=== PATIENT | female | born 1970 | race Caucasian/White ===

== ENCOUNTER 2017-02-17 14:57 | Observation (INO) | payer OTHER ==
[~2017-02-17] VITALS: Ht 165.1 cm; Wt 83.0 kg
[2017-02-17 15:11] VITALS: BP 247/138
--- NOTE | 2017-02-17 15:53 | NUR ---
PT PRESENTS TO THE ER FROM OPTHOMOLOGIST OFFICE, SENT FOR HIGH BP. MARCIAL PUPILS WERE DILATED IN EYE DOCTOR OFFICE. REPORTS BLURRY VISION TO LEFT EYE AND MILD PAIN. RT EYE ALSO DILATED WITHOUT PAIN. ALSO REPORTS MILD GRADUAL ONSET HEADACHE THATS TSRTED YESTERDAY. Addendum: 02/17/17 at 1556 by [facility] HEADACHE STARTED YESTERDAY. DENIES ANY NAUSEA/VOMITTING, FEVERS OR CHILLS. RESP EVEN AND UNLABORED, ON RA@99%. NO FACIAL DROOP NOTED, TALKING IN FULL CLEAR SENTENCES, STEADY GAIT. NO UNILATERAL WEAKNESS. IV SL#20 TO RT AC, BLOOD COLLECTED. AWAITING ER MD EXAM.
[2017-02-17] MEDS ORDERED: LORazepam 2 MG/ML VIAL IVP ONE (16:10)
[2017-02-17] MEDS ORDERED: NACL 0.9% 500 ML IV ONE (16:10)
[2017-02-17] MEDS ORDERED: ONDANSETRON 4 MG/2 ML VIAL IVP ONE (16:10)
[2017-02-17] MEDS ORDERED: LABETALOL 100 MG/20 ML VIAL IVP ONE ×2 (16:10→18:05)
[2017-02-17 16:18] LABS: BASOPHILS # (AUTO) 0.1 K/uL (0.00-0.22); BASOPHILS % (AUTO) 0.9 % (0.0-2.0); EOSINOPHILS # (AUTO) 0.2 K/uL (0-0.4); EOSINOPHILS % (AUTO) 3.3 % (0.0-4.0); HEMATOCRIT 48.5 % (36-48); HEMOGLOBIN 15.6 g/dL (12.0-16.0); LYMPHOCYTES % (AUTO) 26.5 % (20.5-51.1); MEAN CORPUSCULAR HEMOGLOBIN 28 pg (27-31); MEAN CORPUSCULAR HGB CONC 32 g/dL (33-37); MEAN CORPUSCULAR VOLUME 87 fL (80-94); MONOCYTES # (AUTO) 0.4 K/uL (0.8-1.0); NEUTROPHILS # (AUTO) 4.8 K/uL (1.8-7.7); NEUTROPHILS % (AUTO) 63.3 % (42.2-75.2); PLATELET COUNT (AUTO) 254 K/uL (140-450); RED CELL DISTRIBUTION WIDTH 12.9 % (11.6-13.7); WHITE BLOOD COUNT (AUTO) 7.5 K/uL (4.8-10.8)
[2017-02-17 16:40] LABS: ANION GAP 11.3 (8-16); CALCIUM 9.1 mg/dL (8.5-10.1); CARBON DIOXIDE 31.4 mmol/L (21-32); CREATININE 1.1 mg/dL (0.6-1.3); POTASSIUM 3.7 mmol/L (3.5-5.1)
[2017-02-17 16:46] LABS: ALBUMIN 3.1 g/dL (3.4-5.0); TOTAL BILIRUBIN 0.4 mg/dL (0.0-1.0)
--- NOTE | 2017-02-17 17:05 | NUR ---
PT TAKEN TO CT SCAN VIA [facility]
--- NOTE | 2017-02-17 17:45 | NUR ---
PT TO CT SCAN Via [facility]
--- NOTE | 2017-02-17 18:25 | NUR ---
PT LAYING IN BED, WITH EYES CLOSED, IN NAD. RESP EVEN AND UNLABORED. FAMILY AT BEDSIDE. IV FLUIDS INFUSING WELL. BP HIGH AT 198/96. ER INFORMED-ORDESR RECEIVED AND CARRIED OUT.
[2017-02-17] MEDS ORDERED: HYDROcodone/APAP 5/325 MG 1 TAB TAB PO PRN (20:50)
[2017-02-17] MEDS ORDERED: LORazepam 2 MG/ML VIAL IVP PRN (20:50)
[2017-02-17] MEDS ORDERED: DEXTROSE 50% 50 ML SYR IVP PRN (20:50)
[2017-02-17] MEDS ORDERED: ONDANSETRON 4 MG/2 ML VIAL IVP PRN (20:50)
[2017-02-17] MEDS ORDERED: ALBUTEROL 0.083% 2.5 MG/3 ML NEBU IH PRN (20:50)
[2017-02-17] MEDS ORDERED: ACETAMINOPHEN 325 MG TAB PO PRN (20:50)
[2017-02-17] MEDS ORDERED: METOPROLOL 25 MG TAB PO ONE (21:00)
[2017-02-17] MEDS ORDERED: amLODIPine 5 MG TAB PO ONE (21:00)
[2017-02-17] MEDS ORDERED: cloNIDine 0.1 MG TAB PO ONE ×2 (21:00)
[2017-02-17] MEDS ORDERED: METOPROLOL 50 MG TAB PO ONE (21:00)
[2017-02-17] MEDS: INSULIN LISPRO SLIDING SCALE 100 UNITS/ML VIAL SUBQ PRN (22:00)
--- NOTE | 2017-02-17 22:20 | NUR ---
Patient will be admitted to care of DR LARSON. Admited to TELE. Will go to room 112B. Belongings list completed. Report to ALEX CASTANON..
[2017-02-17 22:30] VITALS: BP 166/99
--- NOTE | 2017-02-17 22:30 | NUR ---
RECEIVED REPORT FROM ED RN FOR CONTINUITY OF CARE. 46 Y.O. FEMALE BROUGHT TO UNIT WITH DX: HYPERTENSIVE URGENCY. PATIENT IS A&OX4, DISCUSSED PLAN OF CARE WITH PATIENT AND FAMILY MEMBERS AT BEDSIDE, VERBALIZED UNDERSTANDING. SHIFT ASSESSMENT DONE, VS TAKEN. NO S/S OF RESPIRATORY DISTRESS NOTED ON ROOM AIR. PATIENT DENIES PAIN. MRSA SWAB COLLECTED, WRISTBANDS APPLIED. SAFETY MEASURES ENFORCED AND ORIENTED TO ROOM. CALL LIGHT PLACED WITHIN REACH AND PATIENT ENCOURAGED TO USE FOR ASSISTANCE. WILL CONTINUE TO MONITOR.
[2017-02-17] MEDS: BLOOD GLUCOSE MONITORING 1 DEV DEV FS SCH (22:43)
[2017-02-18] VITALS: BP 162/86
--- NOTE | 2017-02-18 00:09 | NUR ---
VS TAKEN, STABLE AT THIS TIME. PATIENT RESTING IN BED, NO S/S OF DISTRESS OR DISCOMFORT NOTED. CALL LIGHT WITHIN REACH.
--- NOTE | 2017-02-18 02:15 | NUR ---
PATIENT SLEEPING AT THIS TIME, NO S/S OF DISTRESS OR DISCOMFORT NOTED. SAFETY MEASURES ENFORCED, CALL LIGHT WITHIN REACH.
[2017-02-18 04:00] VITALS: BP 153/93
--- NOTE | 2017-02-18 04:22 | NUR ---
VITAL SIGNS TAKEN, STABLE AT THIS TIME, B/P AT 153/93. PATIENT AMBULATED TO RESTROOM, VOIDED. CALL LIGHT WITHIN REACH.
[2017-02-18] MEDS ORDERED: PNEUMOCOCCAL VACCINE 23 MCG/0.5 ML VIAL IMVAC PRN (04:40)
[2017-02-18] MEDS ORDERED: [UNRECOGNIZED DRUG - CODE] OP (05:01)
[2017-02-18] MEDS ORDERED: DIA250 PO (05:01)
[2017-02-18] MEDS ORDERED: [UNRECOGNIZED DRUG - CODE] OP (05:01)
[2017-02-18] MEDS ORDERED: ATRO10DR OP (05:01)
[2017-02-18] MEDS ORDERED: XALOS OP (05:01)
[2017-02-18] MEDS: BLOOD GLUCOSE MONITORING 1 DEV DEV FS SCH (05:51)
--- NOTE | 2017-02-18 06:13 | NUR ---
BLOOD SUGAR TAKEN, 236 WILL ADMINISTER INSULIN PER MD ORDER.
[2017-02-18] MEDS: INSULIN LISPRO SLIDING SCALE 100 UNITS/ML VIAL SUBQ PRN (06:23)
[2017-02-18 06:39] LABS: BASOPHILS # (AUTO) 0.1 K/uL (0.00-0.22); EOSINOPHILS # (AUTO) 0.2 K/uL (0-0.4); EOSINOPHILS % (AUTO) 3.2 % (0.0-4.0); HEMATOCRIT 37.1 % (36-48); HEMOGLOBIN 11.8 g/dL (12.0-16.0); MEAN CORPUSCULAR HEMOGLOBIN 28 pg (27-31); MEAN CORPUSCULAR HGB CONC 32 g/dL (33-37); MEAN CORPUSCULAR VOLUME 86 fL (80-94); MONOCYTES # (AUTO) 0.6 K/uL (0.8-1.0); MONOCYTES % (AUTO) 8.5 % (1.7-9.3); NEUTROPHILS # (AUTO) 3.7 K/uL (1.8-7.7); NEUTROPHILS % (AUTO) 56.3 % (42.2-75.2); PLATELET COUNT (AUTO) 181 K/uL (140-450); RED CELL DISTRIBUTION WIDTH 12.7 % (11.6-13.7); WHITE BLOOD COUNT (AUTO) 6.6 K/uL (4.8-10.8)
[2017-02-18 06:54] LABS: CALCIUM 8.2 mg/dL (8.5-10.1); CARBON DIOXIDE 26.8 mmol/L (21-32); CREATININE 1.1 mg/dL (0.6-1.3); POTASSIUM 3.8 mmol/L (3.5-5.1)
--- NOTE | 2017-02-18 07:27 | NUR ---
ENDORSED PATIENT TO DAY RN FOR CONTINUITY OF CARE, PATIENT IS IN STABLE CONDITION.
--- NOTE | 2017-02-18 07:30 | NUR ---
RECEIVED REPORT FROM LG JOHNSON. PT IS RESTING IN BED, A/OX4, AMBULATORY, SKIN IS INTACT, IV ON THE RT AC, PATENT, INTACT, FLUSHING WELL ON SALINE LOCK, NO S/S OF RESPIRATORY DISTRESS OR DISCOMFORT NOTED, SAFETY/FALL PRECAUTIONS ARE IN PLACE, DISCUSSED PLAN OF CARE WITH PT, PT VERBALIZED UNDERSTANDING, CALL LIGHT WITHIN REACH, WILL CONTINUE TO MONITOR.
[2017-02-18 08:00] VITALS: BP 151/86
[2017-02-18] MEDS ORDERED: ENOXAPARIN 40 MG/0.4 ML SYR SUBQ SCH (09:00)
[2017-02-18] MEDS ORDERED: ASPIRIN 325 MG TAB PO SCH (09:00)
[2017-02-18] MEDS ORDERED: amLODIPine 5 MG TAB PO ONE (09:00)
--- NOTE | 2017-02-18 09:15 | NUR ---
PATIENT HAS BEEN SCREENED AND CATEGORIZED MODERATE NUTRITION RISK. PATIENT WILL BE SEEN WITHIN 3-5 DAYS OF ADMISSION. 02/20/17-02/22/[address]
--- NOTE | 2017-02-18 09:30 | NUR ---
PT IS RESTING IN BED, NO S/S OF RESPIRATORY DISTRESS OR DISCOMFORT NOTED, CALL LIGHT WITHIN REACH, WILL CONTINUE TO MONITOR.
[2017-02-18] MEDS ORDERED: LISI10TA11 PO (09:49)
[2017-02-18] MEDS ORDERED: METF500T64 PO (09:49)
--- NOTE | 2017-02-18 11:30 | NUR ---
PT DISCHARGE INSTRUCTIONS GIVEN, ID WRIST BAND REMOVED, IV REMOVED, CATHETER TIP INTACT, PT STABLE UPON DISCHARGE, ACCOMPANIED BY FAMILY.
== END 2017-02-18 11:30 | disposition home or self-care (01) ==
LOC: MED 14:57 → MTU 20:57 → INTOOBSV 20:57
PROVIDERS: ADMIT Internal Medicine Pulmonary Disease; ATTEND Internal Medicine Pulmonary Disease
DX: I16.0 Hypertensive urgency (principal); E11.65 Type 2 diabetes mellitus with hyperglycemia; I10 Essential (primary) hypertension; H40.9 Unspecified glaucoma; F17.200 Nicotine dependence, unspecified, uncomplicated; Z91.14 Patient's other noncompliance with medication regimen; Z23 Encounter for immunization
CPT/HCPCS: 36415; 70450; 80048; 80053; 82550; 82553; 82948; 83735; 84484; 85025; 87081; 90732; 94760; 96361; 96372; 96374; 96375; 96376; 99285; G0378; J1650; J1815; J2060; J2405; J3490

== ENCOUNTER 2017-02-20 16:45 | Emergency (ER) | payer OTHER ==
[~2017-02-20] VITALS: Ht 165.1 cm; Wt 85.3 kg
[~2017-02-20 16:45] MED LIST: ATRO10DR OP; DIA250 PO; LISI10TA11 PO; METF500T64 PO; XALOS OP; [UNRECOGNIZED DRUG - CODE] OP; [UNRECOGNIZED DRUG - CODE] OP
[2017-02-20 16:48] VITALS: BP 237/112
[2017-02-20] MEDS ORDERED: DORZ10SO23 OP (16:57)
[2017-02-20] MEDS ORDERED: ENALAPRILAT 2.5 MG/2 ML VIAL IVP ONE ×2 (17:05→17:10)
--- NOTE | 2017-02-20 17:49 | NUR ---
PATIENT PRESENTS TO ED WITH WENT TO PMD DR. HAWKINS FOR FOLLOW UP VISIT AND BP IN OFFICE WAS 230/120 HX HTN, DM, PT STATES ITS MY REGULAR CHECK UP, DENIES N/V/D; SKIN IS PINK/WARM/DRY; AAOX4 WITH EVEN AND STEADY GAIT; LUNGS CLEAR BL; HR EVEN AND REGULAR; PT DENIES ANY FEVER, CP, SOB, OR COUGH AT THIS TIME; PATIENT STATES PAIN OF 0/10 AT THIS TIME; PATIENT POSITIONED FOR COMFORT; HOB ELEVATED; BEDRAILS UP X2; PT AAO
[2017-02-20 18:09] LABS: ANION GAP 10.9 (8-16); CALCIUM 8.7 mg/dL (8.5-10.1); CARBON DIOXIDE 24.6 mmol/L (21-32); CREATININE 1.4 mg/dL (0.6-1.3); POTASSIUM 4.5 mmol/L (3.5-5.1)
[2017-02-20] MEDS ORDERED: hydrALAZINE 20 MG/ML VIAL IVP ONE (18:10)
--- NOTE | 2017-02-20 18:13 | NUR ---
DR. TURNER AT BEDSIDE
--- NOTE | 2017-02-20 18:17 | NUR ---
PT AAO, FAMILY AT BEDSIDE, BP STILL ELEVATED, NO C/O PAIN AT THIS TIME, NO VOMITTING NOTED.
--- NOTE | 2017-02-20 18:33 | NUR ---
PT SLEEPING AT THIS TIME RECHECK BP
--- NOTE | 2017-02-20 18:39 | NUR ---
DR. TURNER AT BEDSIDE
[2017-02-20 18:47] VITALS: BP 168/82
--- NOTE | 2017-02-20 18:48 | NUR ---
Patient discharged with v/s stable. Written and verbal after care instructions given and explained. Patient alert, oriented and verbalized understanding of instructions. Ambulatory with steady gait. All questions addressed prior to discharge. ID band removed. Patient advised to follow up with PMD. Rx of LISINOPRIL AND HYDROCHLORTHIAZIDE given. Patient educated on indication of medication including possible reaction and side effects. Opportunity to ask questions provided and answered.
== END 2017-02-20 18:48 | disposition home or self-care (01) ==
LOC: MED 16:45
DX: I10 Essential (primary) hypertension (principal); E11.9 Type 2 diabetes mellitus without complications
CPT/HCPCS: 36415; 80048; 96374; 96375; 99284; J0360; J3490